=== PATIENT | female | born 1960 | race Two or more races ===

== ENCOUNTER 2017-04-28 14:50 | Emergency (ER) | payer OTHER ==
[~2017-04-28] VITALS: Ht 190.5 cm; Wt 90.9 kg
[2017-04-28 17:38] VITALS: BP 138/62
== END 2017-04-28 17:45 | disposition home or self-care (01) ==
LOC: EMS 14:54
DX: M54.6 Pain in thoracic spine (principal); V49.59XA Passenger injured in collision with other motor vehicles in traffic accident, initial encounter; Y93.89 Activity, other specified; Y92.89 Other specified places as the place of occurrence of the external cause; Y99.8 Other external cause status
CPT/HCPCS: 99283